=== PATIENT | female | born 1965 | race Hispanic/Latino ===

== ENCOUNTER → 2017-12-11 | Outpatient (CLI) | payer BC | END | disposition home or self-care (01) | LOC: RAH 07:54 | PROVIDERS: ATTEND Nurse Practitioner Family | DX: G93.89 Other specified disorders of brain (principal) | CPT/HCPCS: 70551 ==

== ENCOUNTER 2018-11-26 08:14 | Day surgery (SDC) | payer BC ==
[2018-11-25 15:40] VITALS: BP 99/55
[2018-11-25 15:42] LABS: BASOPHILS % (AUTO) 0.6 % (0.0-5.0); EOSINOPHILS % (AUTO) 1.4 % (0.0-8.0); HEMATOCRIT 39.3 % (36-48); LYMPHOCYTES % (AUTO) 32.4 % (21.0-51.0); MEAN CORPUSCULAR HEMOGLOBIN 31.4 pg (27.0-33.0); MEAN CORPUSCULAR HGB CONC 34.3 g/dL (32.0-36.0); MEAN CORPUSCULAR VOLUME 91.5 fL (79-99); MONOCYTES % (AUTO) 5.9 % (3.0-13.0); NEUTROPHILS % (AUTO) 59.7 % (40.0-77.0); NUCLEATED RED BLOOD CELLS 0.1 % (0.0-0.19); PLATELET COUNT (AUTO) 168 K/uL (130-400); RED BLOOD CELL COUNT(AUTO) 4.29 MIL/uL (4.00-5.50); RED CELL DISTRIBUTION WIDTH 12.8 % (11.0-15.5); WHITE BLOOD COUNT (AUTO) 5.5 K/uL (4.8-10.8)
[~2018-11-26] VITALS: Ht 157.5 cm; Wt 63.2 kg
[2018-11-26] VITALS (18 sets, daily range): BP systolic 104–136; BP diastolic 63–86
[2018-11-26] MEDS: CEFAZOLIN SODIUM 1 GM VIAL IVP SCH ×2 (06:00→09:55)
[~2018-11-26 08:14] MED LIST: BIOT25008 PO; DIGE1TAB PO; ESTRADIAL PO; MELA3TAB PO; [UNRECOGNIZED DRUG - OTHER] PO
[2018-11-26] MEDS ORDERED: LACTATED RINGERS 1000ML 1,000 ML IV ONE (08:31)
[2018-11-26] MEDS ORDERED: MIDAZOLAM HCL 1 MG/ML 2ML VIAL ONE (09:44)
[2018-11-26] MEDS ORDERED: PROPOFOL 10 MG/ML 20ML VIAL IV ONE (09:46)
[2018-11-26] MEDS ORDERED: LIDOCAINE PF 2% 5ML ABBOJECT ONE (09:46)
[2018-11-26] MEDS ORDERED: FENTANYL CITRATE PF 50 MCG/1 ML 2ML VIAL ONE (09:51)
[2018-11-26] MEDS ORDERED: ONDANSETRON HCL 4 MG/2 ML VIAL ONE (09:58)
[2018-11-26] MEDS ORDERED: DEXAMETHASONE SOD PHOSPHATE 10MG/ML 1ML VIAL ONE (09:58)
[2018-11-26] MEDS ORDERED: TYL3 PO (10:54)
[2018-11-26] MEDS ORDERED: CEPH500B PO (10:54)
[2018-11-26] MEDS ORDERED: NAPR-1192 PO (10:54)
[2018-11-26] MEDS ORDERED: MEPERIDINE-PF 25 MG/ML SYG ONE (11:12)
[2018-11-26] MEDS ORDERED: KETOROLAC TROMETHAMINE 30MG/ML ONE (11:23)
[2018-11-26] MEDS ORDERED: MORPHINE SULFATE 2 MG/ML 1ML SYG ONE (11:34)
== END 2018-11-26 13:00 | disposition home or self-care (01) ==
LOC: DAH 08:14
PROVIDERS: ATTEND Orthopaedic Surgery
DX: M23.211 Derangement of anterior horn of medial meniscus due to old tear or injury, right knee (principal); M23.221 Derangement of posterior horn of medial meniscus due to old tear or injury, right knee; Z90.710 Acquired absence of both cervix and uterus; Z98.890 Other specified postprocedural states; Z79.899 Other long term (current) drug therapy
CPT/HCPCS: 29881; 36415; 80048; 85025; A4218; A4606; A4649 ×2; A4930; A6223; J0690; J1100; J1885; J2001; J2175; J2250; J2405; J2704; J3010; J7120 ×2

== ENCOUNTER → 2019-01-07 | Outpatient (CLI) | payer BC ==
[~2019-01-07] MED LIST changes: +CEPH500B PO; +NAPR-1192 PO; +TYL3 PO
== END | disposition home or self-care (01) ==
LOC: RAH 12:59
PROVIDERS: ATTEND Nurse Practitioner Adult Health
DX: M89.8X9 Other specified disorders of bone, unspecified site (principal)
CPT/HCPCS: 78306; A9503

== ENCOUNTER → 2023-01-14 | Outpatient (CLI) | payer BC ==
[~2023-01-14] MED LIST changes: -MELA3TAB PO; +MELA3TAB41 PO
== END | disposition home or self-care (01) ==
LOC: RAH 10:00
PROVIDERS: ATTEND Nurse Practitioner Family
DX: R51.9 Headache, unspecified (principal)
CPT/HCPCS: 70551

== ENCOUNTER → 2023-04-16 | Outpatient (CLI) | payer OTHER | END | disposition home or self-care (01) | LOC: OIH 13:20 | PROVIDERS: ATTEND Nurse Practitioner Adult Health | DX: Z13.6 Encounter for screening for cardiovascular disorders (principal) | CPT/HCPCS: 75571 ==